=== PATIENT | male | born 1935 | race Caucasian/White ===

== ENCOUNTER 2017-03-09 10:44 | Outpatient (CLI) | payer MEDICARE, OTHER | END 2017-03-09 10:45 | disposition EMS.NT | LOC: EMS 10:44 | PROVIDERS: ATTEND Surgery | DX: R06.02 Shortness of breath (principal) ==

== ENCOUNTER 2017-03-09 12:01 | Emergency (ER) | payer MEDICARE, OTHER ==
--- NOTE | 2017-03-09 13:48 | ED Physician Documentation ---
PD HPI DYSPNEA - Stated complaint Stated Complaint: SOA - Chief complaint Chief Complaint: Resp - History obtained from History obtained from: Patient, Family - History of Present Illness Timing - onset: How many years ago (3) Timing - onset during: Rest Timing - duration: Years (3) Timing - details: Gradual onset, Still present Inciting event(s): URI Improved by: Rest, Sitting up Worsened by: Coughing Associated symptoms: Cough. No: Fever, Bilateral edema, Unilateral edema Similar symptoms before: No diagnosis Recently seen: Not recently seen - Additional information Additional information: 81-year-old male former smoker who does not visit the doctor has had shortness of breath for the past 3 years. He does state that he has had more of a cough in the past month and this does affect his breathing. He has been coughing up some phlegm. He does not have an inhaler at home. Review of Systems Constitutional: denies: Fever Eyes: denies: Decreased vision Ears: denies: Ear pain Nose: reports: Congestion Throat: denies: Sore throat Cardiac: denies: Chest pain / pressure, Palpitations Respiratory: reports: Dyspnea, Cough GI: denies: Abdominal Pain, Nausea, Vomiting : denies: Dysuria, Frequency PD PAST MEDICAL HISTORY - Past Medical History Cardiovascular: None Respiratory:  Endocrine/Autoimmune: None GI: GERD, Chronic constipation : Other HEENT: Other Psych: None Musculoskeletal: Osteoarthritis Derm: None - Past Surgical History Past Surgical History: Yes General: Other Ortho: Knee replacement - Present Medications Home Medications: Ambulatory Orders Medication Instructions Recorded Confirmed Ascorbic Acid [Vitamin C] 1 tab PO DAILY 01/19/15 02/06/16 Multivitamin [Multivitamins] 1 tab PO DAILY 01/19/15 02/06/16 Calcium/Magnesium/Zinc 1 each PO DAILY 01/28/15 02/06/16 [Qwvgdgt-Emgfagmqy-Dare Tab] Pseudoephedrine [Sudafed] 30 mg PO Q6H PRN 01/28/15 02/06/16 Azithromycin [Zithromax] 250 mg PO DAILY #6 tablet 03/09/17 - Allergies Allergies/Adverse Reactions: Allergies Allergy/AdvReac Type Severity Reaction Status Date / Time TB shot Allergy Unknown Uncoded 01/19/15 12:08 pain meds AdvReac Emesis Uncoded 01/19/15 12:08 - Social History Does the pt smoke?: No Smoking Status: Former smoker Does the pt drink ETOH?: No PD ED PE NORMAL - Vitals Vital signs reviewed: Yes (normal ) - General General: Alert and oriented X 3, No acute distress, Well developed/nourished - HEENT HEENT: Atraumatic, PERRL, EOMI, Pharynx benign, Other (There are hearing aids present bilaterally. The right TM is clear the left has erythema along the umbo and there is rounding of the umbo. ) - Neck Neck: Supple, no meningeal sign, No bony TTP - Cardiac Cardiac: RRR, No murmur - Respiratory Respiratory: No respiratory distress, Other (diminished breath sounds bilaterally ) - Back Back: No CVA TTP, No spinal TTP - Derm Derm: Normal color, Warm and dry, No rash - Extremities Extremities: No deformity, No edema - Neuro Neuro: Alert and oriented X 3, No motor deficit, No sensory deficit, Normal speech Eye Opening: Spontaneous Motor: Obeys Commands Verbal: Oriented GCS Score: 15 - Psych Psych: Normal mood, Normal affect Results - Vitals Vitals: Vital Signs - 24 hr 03/09/17 03/09/17 03/09/17 12:09 13:33 14:16 Temperature 36.5 C Heart Rate 70 62 59 L Respiratory 16 21 18 Rate Blood Pressure 128/73 135/66 H 141/70 H O2 Saturation 97 93 98 03/09/17 03/09/17 15:00 15:24 Temperature Heart Rate 59 L 76 Respiratory 12 16 Rate Blood Pressure 140/66 H O2 Saturation 98 Oxygen O2 Source Room air - EKG (time done) 1311 Rate: Rate (enter#) (56) Ischemia: Non specific changes Compare to prior EKG: Unchanged from prior EKG (02-06-16) Computer interpretation: Agree with computer - Labs Labs: Laboratory Tests 03/09/17 03/09/17 13:25 13:25 WBC 9.8 RBC 4.20 L Hgb 12.5 L Hct 37.4 L MCV 89.1 MCH 29.7 MCHC 33.3 RDW 14.8 Plt Count 265 MPV 7.7 Neut # 6.6 Lymph # 2.5 [place] # 0.6 Eos # 0.1 Baso # 0.1 Absolute Nucleated RBC 0.00 Nucleated RBC % 0.0 Sodium 137 Potassium 3.6 Chloride 100 L Carbon Dioxide 29 Anion Gap 8.0 BUN 17 Creatinine 1.0 Estimated GFR (MDRD) 72 L Glucose 110 H Calcium 10.9 H Total Bilirubin 0.6 AST 20 ALT 11 Alkaline Phosphatase 68 Total Protein 7.1 Albumin 3.1 L Globulin 4.0 Albumin/Globulin Ratio 0.8 L Lipase 10 L - Rads (name of study) 2 view chest Radiology: Prelim report reviewed (Impression: Large masslike density on the right associated with pleural thickening versus effusion; CT scan is recommended.), EMP read indepedently, See rad report PD MEDICAL DECISION MAKING - ED course Complexity details: reviewed old records, reviewed results, re-evaluated patient , considered differential, d/w patient, d/w family ED course: 81-year-old male with a complaint of shortness of breath for the past 3 years does have some diminished breath sounds on examination and evidence of otitis on the left side. He is a poor historian and complains of 3 years of symptoms for which he has not sought treatment. I suspect he may have untreated COPD and I suspect the reason that he is in the emergency department today specifically is that he has had more cough than usual. He does have otitis on exam and this is treated. He does get results with the use of the DuoNeb and feels improved. However the x-ray examination of his chest pains much different picture and a CT scan of the chest with contrast is ordered. He does have a large pleural effusion and a large solitary mass in the right upper lobe of the right lung. Likely representing a primary lung neoplasm. I discussed with the patient the findings and recommended that he have pleurocentesis done through diagnostic imaging here for evaluation of the tumor type and consideration of immunotherapy. He is not short enough of breath today to require therapeutic thoracentesis as a palliative measure. He does have cough congestion production of phlegm and will also put him on a course of antibiotic. Departure - Departure Disposition: 01 Home, Self Care Clinical Impression: Bronchitis Lung cancer, upper lobe Qualifiers: Laterality: right Qualified Code(s): C34.11 - Malignant neoplasm of upper lobe , right bronchus or lung Condition: Stable Instructions: ED Upper Resp Infec Abx Tx, Cancer Lung Dx Staging, Cancer Lung Plan Future, Cancer Lung Living Follow-Up: Kev Yeager MD [Primary Care Provider] - Prescriptions: Azithromycin [Zithromax] 250 mg PO DAILY #6 tablet
[2017-03-09] MEDS ORDERED: IPRATROPIUM/ALBUTEROL 3 ML NEB INH STA (13:49)
[2017-03-09] MEDS ORDERED: DEXAMETHASONE 10 MG/ML VIAL PO STA (13:49)
--- NOTE | 2017-03-09 14:31 | XRAY Report ---
EXAM: CHEST RADIOGRAPHY EXAM DATE: 03/09/2017 02:15 PM. CLINICAL HISTORY: Cough, short of breath. COMPARISON: None. TECHNIQUE: 2 views. FINDINGS: Lungs/Pleura: Large masslike density filling the right upper lung zone and measuring about 8 mm in di ameter. Ill-defined increased density in the right base possibly due to atelectasis versus infiltrate . Generalized pleural thickening on the right; uncertain how much represents free effusion. No defini te infiltrate, effusion, or consolidation on the left. No pneumothorax. Mediastinum: Moderate cardiomegaly. Upper lobe vessels not distended. Right hilar and azygous fullnes s. Other: Osteopenia, degenerative changes. IMPRESSION: Large masslike density on the right associated pleural thickening versus effusion; CT sca n is recommended. [facility] Referring Provider Line: [phone] SITE ID: [id number]
[2017-03-09 14:55] LABS: BASOPHILS # (AUTO) 0.1 10^3/uL (0.0-0.1); BASOPHILS % (AUTO) 0.6 %; EOSINOPHILS # (AUTO) 0.1 10^3/uL (0.0-0.7); EOSINOPHILS % (AUTO) 0.7 %; HGB - HEMOGLOBIN 12.5 g/dL (14.0-18.0); LYMPHOCYTES # (AUTO) 2.5 10^3/uL (1.5-3.5); LYMPHOCYTES % (AUTO) 25.4 %; MEAN CORPUSCULAR HEMOGLOBIN 29.7 pg (27.0-31.0); MEAN CORPUSCULAR HGB CONC 33.3 g/dL (32.0-36.0); MEAN CORPUSCULAR VOLUME 89.1 fL (80.0-94.0); MEAN PLATELET VOLUME 7.7 fL (7.4-11.4); MONOCYTES # (AUTO) 0.6 10^3/uL (0.0-1.0); MONOCYTES % (AUTO) 6.4 %; NEUTROPHILS # (AUTO) 6.6 10^3/uL (1.5-6.6); NEUTROPHILS % (AUTO) 66.9 %; PLT - PLATELET COUNT 265 10^3/uL (130-450); RED CELL DISTRIBUTION WIDTH 14.8 % (12.0-15.0); WHITE BLOOD COUNT 9.8 x10^3/uL (4.8-10.8)
[2017-03-09 15:09] LABS: ALBUMIN 3.1 g/dL (3.2-5.5); ALBUMIN/GLOBULIN RATIO 0.8 (1.0-2.2); BILIRUBIN,TOTAL 0.6 mg/dL (0.2-1.0); CALCIUM 10.9 mg/dL (8.5-10.3); TOTAL PROTEIN 7.1 g/dL (6.7-8.2)
[2017-03-09 15:27] VITALS: BP 140/66
[2017-03-09] MEDS ORDERED: IOPAMIDOL-300 100 ML VIAL ONE (15:34)
[2017-03-09] MEDS ORDERED: IOPAMIDOL-300 100 ML VIAL IVP ONE (15:37)
--- NOTE | 2017-03-09 16:05 | CT Report ---
EXAM: CT CHEST EXAM DATE: 03/09/2017 03:48 PM. CLINICAL HISTORY: R upper lobe mass. COMPARISONS: Radiograph from earlier today. TECHNIQUE: Routine helical CT imaging was performed through the chest. IV contrast: 80 cc Isovue 300. Reconstructions: Coronal and sagittal. In accordance with CT protocol optimization, one or more of the following dose reduction techniques w ere utilized for this exam: automated exposure control, adjustment of mA and/or KV based on patient s ize, or use of iterative reconstructive technique. 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 Heterogeneously enhancing right up per lobe mass is seen with approximate measurements of 10 x 6 cm, with extension to the right upper p leural space is evident (3/21). Additional 2 x 1.5 cm focus of nodular consolidation abutting the rig ht minor fissure (4/35) could represent contiguous extension versus pleural tumor extension. There is a large right-sided pleural effusion with suspicion for malignant pleural effusion. No left-sided german ng nodules are seen. Mild basilar dependent atelectasis on the left. No other left-sided consolidatio n. No pneumothorax. Mediastinum: Normal heart size. No pericardial effusion. Enlarged mediastinal and hilar lymph nodes a s follows: 1. 1.7 cm short axis right hilar lymph node (3/26). 2. 1.5 cm short axis precarinal lymph node (3/25). No central pulmonary artery filling defects are seen. Bones: Osteopenia evident. No focal suspicious lucent or sclerotic osseous lesions are seen. Multilev el degenerative disk disease in the spine. Visualized Abdomen: Cholelithiasis evident. Otherwise unremarkable. Other: None IMPRESSION: 1. Large heterogeneously enhancing right upper lobe lung mass extension into the right pleural space likely represents primary pulmonary carcinoma. No evidence for extension into the chest wall. 2. 2 cm nodular consolidation abutting the right minor fissure could represent contiguous inferior ex tension versus pleural tumor deposit. 3. Large right pleural effusion is suspicious for malignant effusion. Diagnostic thoracentesis should be considered for further evaluation. 4. Metastatic right hilar and mediastinal lymphadenopathy noted. 5. No focal left-sided lung nodules or consolidation evident. [facility] Referring Provider Line: [phone] SITE ID: [id number]
== END 2017-03-09 17:00 | disposition home or self-care (01) ==
LOC: ED 12:01
DX: J40 Bronchitis, not specified as acute or chronic (principal); C34.11 Malignant neoplasm of upper lobe, right bronchus or lung; Z87.891 Personal history of nicotine dependence
CPT/HCPCS: 36415; 71046; 71260; 80053; 83690; 85025; 94640; 99283; 99284; J7620; Q9967

== ENCOUNTER 2017-03-12 08:00 | Outpatient (CLI) | payer MEDICARE, OTHER ==
[2017-03-12 14:04] LABS: INR 1.1 (0.8-1.2)
== END 2017-03-12 08:01 | disposition home or self-care (01) ==
LOC: LAB.WCP 08:00
PROVIDERS: ATTEND Family Medicine
DX: C34.11 Malignant neoplasm of upper lobe, right bronchus or lung (principal); C78.7 Secondary malignant neoplasm of liver and intrahepatic bile duct
CPT/HCPCS: 36415; 85610; 85730

== ENCOUNTER 2017-03-15 11:55 | Outpatient (CLI) | payer MEDICARE, OTHER ==
[2017-03-15] MEDS ORDERED: BUFFERED LIDOCAINE 10 ML SYRINGE IU ONE (13:38)
--- NOTE | 2017-03-15 15:51 | XRAY Report ---
DATE OF SERVICE: 03/15/2017 INSPIRATORY AND EXPIRATORY VIEWS OF THE CHEST: 03/15/2017 CLINICAL INDICATION: Status post right ultrasound-guided thoracentesis. FINDINGS: Frontal inspiratory and expiratory views of the chest are compared to previous plain film and CT of 03/09/2017. There has been interval decrease in volume of right pleural effusion. Right upper lung mass persists. The left lung is clear. No left effusion is seen. No pneumothorax. IMPRESSION: NO EVIDENCE OF A POSTPROCEDURE PNEUMOTHORAX. PERSISTENT RIGHT UPPER LOBE MASS. TD: 03/15/2017 16:50
--- NOTE | 2017-03-15 15:54 | Ultrasound Report ---
DATE OF SERVICE: 03/15/2017 ULTRASOUND-GUIDED RIGHT THORACENTESIS: 03/15/2017 CLINICAL INDICATION: Right pleural effusion and lung mass. FINDINGS: Following obtaining informed consent, a suitable site on the patient's right posterior tho rax was selected with ultrasound. The skin was prepped and draped in the usual sterile fashion. The skin an d soft tissues were anesthetized with lidocaine. A Cryn-O-Wfxienvj catheter was inserted into the right ple ural space, and approximately 2000 mL of fluid was removed without difficulty. The patient tolerated the procedure well. No immediate complications. Fluid was submitted to the lab for further evaluation as directed by Dr. Yeager. IMPRESSION: SUCCESSFUL ULTRASOUND-GUIDED RIGHT THORACENTESIS. FLUID SUBMITTED TO THE LAB. TD: 03/15/2017 16:53
[2017-03-17 15:48] VITALS: BP 130/69
== END 2017-03-15 11:56 | disposition home or self-care (01) ==
LOC: DI 11:55
PROVIDERS: ATTEND Family Medicine
DX: C34.91 Malignant neoplasm of unspecified part of right bronchus or lung (principal)
CPT/HCPCS: 32555; 71046; 88108; 88305; 88341; 88342; 88344

== ENCOUNTER 2017-04-12 07:17 | Outpatient (CLI) | payer MEDICARE, OTHER | END 2017-04-12 07:18 | disposition critical access hospital (66) | LOC: EMS 07:17 | PROVIDERS: ATTEND Surgery | DX: M54.9 Dorsalgia, unspecified (principal); W18.39XA Other fall on same level, initial encounter; Y93.01 Activity, walking, marching and hiking; Y92.129 Unspecified place in nursing home as the place of occurrence of the external cause ==

== ENCOUNTER 2017-04-12 07:23 | Emergency (ER) | payer MEDICARE, OTHER ==
[2017-04-12 07:34] VITALS: BP 162/72
[2017-04-12] MEDS ORDERED: oxyCODONE 5 MG TABLET PO STA (07:34)
--- NOTE | 2017-04-12 07:42 | ED Physician Documentation ---
History of Present Illness - Stated complaint Stated Complaint: GLF - Chief complaint Chief Complaint: Back Pain - Additonal information Additional information: hx frompt and hospcie nurse 81 male on hospice per EMS advanced lung cancer home O2 dependent lives at [facility] fell yesterday and again today - while using walker - mechanical fall per EMS description complained of neck pain after fall yesterday c/of neck upper back and R hip pain after fall today no focal weakness though hospice nurse feels both arms may be a bit weaker than normal so sent to ER for xrays per hospice nurse who accompanies pt no CT scans also freq urination no other recent reported fever cough NVD etc Review of Systems Constitutional: denies: Fever, Chills Ears: reports: Loss of hearing (not new). denies: Drainage/discharge Nose: denies: Epistaxis Cardiac: denies: Chest pain / pressure Respiratory: reports: Dyspnea (home O2 for lung ca) GI: denies: Abdominal Pain : reports: Frequency Musculoskeletal: reports: Neck pain, Back pain, Joint pain Neurologic: denies: Focal weakness, Headache Endocrine: denies: Easy bruising / bleeding Immunocompromised: denies: Immunocompromised PD PAST MEDICAL HISTORY - Past Medical History Cardiovascular: None Respiratory:  Endocrine/Autoimmune: None GI: GERD, Chronic constipation : Other HEENT: Other Psych: None Musculoskeletal: Osteoarthritis Derm: None - Past Surgical History Past Surgical History: Yes General: Other Ortho: Knee replacement - Present Medications Home Medications: Ambulatory Orders Medication Instructions Recorded Confirmed Ascorbic Acid [Vitamin C] 1 tab PO DAILY 01/19/15 02/06/16 Multivitamin [Multivitamins] 1 tab PO DAILY 01/19/15 02/06/16 Calcium/Magnesium/Zinc 1 each PO DAILY 01/28/15 02/06/16 [Umvwtyr-Lpwqtklqk-[place] Tab] Pseudoephedrine [Sudafed] 30 mg PO Q6H PRN 01/28/15 02/06/16 Azithromycin [Zithromax] 250 mg PO DAILY #6 tablet 03/09/17 - Allergies Allergies/Adverse Reactions: Allergies Allergy/AdvReac Type Severity Reaction Status Date / Time TB shot Allergy Unknown Uncoded 01/19/15 12:08 pain meds AdvReac Emesis Uncoded 01/19/15 12:08 - Social History Does the pt smoke?: No Smoking Status: Former smoker Does the pt drink ETOH?: No PD ED PE NORMAL - Vitals Vital signs reviewed: Yes - General General: Other (alert eyes open answers questions, confused) - HEENT HEENT: Atraumatic - Neck Neck: No: No bony TTP (+ TTP diffusely but most prom at C6 - remain in collar for imaging) - Cardiac Cardiac: RRR, Other (heart sounds best hear over R chest wall) - Respiratory Respiratory: Other (gibson BS, no chest wall TTP) - Abdomen Abdomen: Soft, Non tender - Extremities Extremities: Other (no hip TTP or shortening orrotation or pain with ROM during my exam, + pulses) - Neuro Neuro: Other (diff exam as pt is very [place] even with hearing aids and seems a little confused so not following all commands, moves all ext, withdraws from touch so presume sensation intact). No: Alert and oriented X 3 Eye Opening: Spontaneous Motor: Localizes to Pain Verbal: Confused GCS Score: 13 Results - Vitals Vitals: Vital Signs - 24 hr 04/12/17 07:28 Temperature 36.0 C L Heart Rate 81 Respiratory 16 Rate Blood Pressure 162/72 H O2 Saturation 92 Oxygen O2 Source Nasal cannula PD MEDICAL DECISION MAKING - ED course ED course: hospice pt sent in by 911 after several falls hospice nurse comes with pt she states only here to get xrays to eval for injury I explained that xrays are less sensitive than CT for elderly cancer pt hospice nurse states no CTs juts xrays so got those and they are limited but neg for apparent acute injury hospice nurse left family arrived I went to update re neg xrays and plan to dc but family does not seem to completely understand hospice - when i explained that we got xarys not CT and limits of xarys they were concerned, they were asking how he would be able to go home and be ambulatory and functional, what were they going to do with him if he could not safely walk so called national account director Dr Murray who immediately came in Dr Murray advises that this pt has weeks or more likely days to live, no further wup to be pursues, one and only goal is pain management he met with the family for a long time and the plan is to dc to his home with expectation of imminent - need to egt hosue set up, meds delivered etc andnthen an ambulance to transport - hospice staff working on all of this pt boarding in ER pending dc to home Departure - Departure Disposition: Home, Self Care Clinical Impression: Fall Qualifiers: Encounter type: initial encounter Qualified Code(s): W19.XXXA - Unspecified fall, initial encounter Hip injury Qualifiers: Encounter type: initial encounter Laterality: right Qualified Code(s): S79.911A - Unspecified injury of right hip, initial encounter Neck injury Qualifiers: Encounter type: initial encounter Qualified Code(s): S19.9XXA - Unspecified injury of neck, initial encounter Back injury Qualifiers: Encounter type: initial encounter Qualified Code(s): S39.92XA - Unspecified injury of lower back, initial encounter Lung cancer, upper lobe Qualifiers: Laterality: unspecified laterality Qualified Code(s): C34.10 - Malignant neoplasm of upper lobe, unspecified bronchus or lung Comments: The xrays did not show any fractures - this does not completely rule out fractures or other injuries but is reassuring. The hospice team will be assisting you and family at home with pain control and other concerns The ambulance will take you home Your family needs to pick up operator the medications from [facility] at [address] The hospice team will be at the house this afternoon
--- NOTE | 2017-04-12 08:35 | XRAY Report ---
EXAM: RIGHT HIP AND PELVIS RADIOGRAPHY EXAM DATE: 04/12/2017 08:15 AM. HISTORY: Fall R hip pain. COMPARISONS: None. TECHNIQUE: 1 view of the pelvis and 1 view of the hip. FINDINGS: Bones: Pelvic ring is intact. No acute fracture or bony lesion is identified. Joints: Mild degenerative changes of the right hip joint. No dislocation. Degenerative changes of the left hip joint and lower lumbar spine. Soft Tissues: Extensive atherosclerotic calcifications are seen. IMPRESSION: 1. No acute osseous abnormalities . Normal alignment. If there is high clinical suspicion MRI is moshe mmended. [facility] Referring Provider Line: [phone] SITE ID: [id number]
--- NOTE | 2017-04-12 08:38 | XRAY Report ---
EXAM: CERVICAL SPINE RADIOGRAPHY EXAM DATE: 04/12/2017 08:15 AM. CLINICAL HISTORY: Fall neck and t spine and r hip pain. COMPARISONS: Chest CT from 03/09/2017. TECHNIQUE: 3 views. FINDINGS: Alignment: No spondylolisthesis. Cervicothoracic junction is not included on the lateral view. Bones: No acute fracture or bony lesion is identified to C5. Mild degenerative spurring. Visualized o dontoid is unremarkable. Disks: Mild disk space narrowing at C5-C6. Facets: Cervical facet arthropathy. Soft Tissues: Prevertebral soft tissues are normal. Complete opacification of the right mid and upper lung as before. IMPRESSION: 1. No acute cervical spine abnormalities are identified noting that the cervical spine is only well-v isualized to C5. Lower cervical spine and cervicothoracic junction are not included. 2. Normal prevertebral soft tissues. 3. Right mid-upper lung complete opacification, unchanged. [facility] Referring Provider Line: [phone] SITE ID: [id number]
--- NOTE | 2017-04-12 08:40 | XRAY Report ---
EXAM: THORACIC SPINE RADIOGRAPHY EXAM DATE: 04/12/2017 08:15 AM. CLINICAL HISTORY: Fall - C and T spine and R hip pain. COMPARISON: Chest x-ray from 03/09/2017. TECHNIQUE: 3 views. FINDINGS: Alignment: No spondylolisthesis. No significant scoliosis. Bones: No acute fracture or bony lesion is identified. Pedicles appear well-maintained. Degenerative osteophyte formation. Disks: Mild to moderate multilevel disk space narrowing large in the mid and upper thoracic spine. Soft Tissues: Complete opacification of the right mid and upper lung. Right lung volume loss. Right p leural effusion. Aortic atherosclerosis. IMPRESSION: 1. No acute thoracic spine abnormalities are identified. 2. Degenerative changes of the thoracic spine. 3. Complete opacification of the right mid and upper lung and right pleural effusion. [facility] Referring Provider Line: [phone] SITE ID: [id number]
[2017-04-12] MEDS ORDERED: LORazepam 2 MG/ML VIAL IM STA (12:35)
== END 2017-04-12 13:37 | disposition home or self-care (01) ==
LOC: EDUNIT# → ED 07:23
DX: S79.911A Unspecified injury of right hip, initial encounter (principal); S29.9XXA Unspecified injury of thorax, initial encounter; S19.9XXA Unspecified injury of neck, initial encounter; W18.39XA Other fall on same level, initial encounter; Y92.019 Unspecified place in single-family (private) house as the place of occurrence of the external cause; C34.10 Malignant neoplasm of upper lobe, unspecified bronchus or lung; Z99.81 Dependence on supplemental oxygen; K21.9 Gastro-esophageal reflux disease without esophagitis; M19.90 Unspecified osteoarthritis, unspecified site; Z87.891 Personal history of nicotine dependence
CPT/HCPCS: 72040; 72070; 73502; 96372; 99283; 99284; A9270; J2060

== ENCOUNTER 2017-04-12 13:29 | Outpatient (CLI) | payer MEDICARE, OTHER | END 2017-04-12 13:30 | disposition hospice, home (50) | LOC: EMS 13:29 | PROVIDERS: ATTEND Surgery | DX: R53.1 Weakness (principal) | CPT/HCPCS: A0425; A0428; A0429 ==